=== PATIENT | female | born 1970 | race Caucasian/White ===

== ENCOUNTER → 2018-02-23 | Outpatient (CLI) | payer BC, OTHER ==
[~2018-02-23] MED LIST: IOHEXOL 350 MG/ML 100 ML (OMNIPAQUE 350) VIAL IV ONE; NS 250 ML (IVPB) BAG IV ONE
[2018-02-23 08:17] LABS: BASOPHILS % (AUTO) 1 % (0-10); EOSINOPHILS # (AUTO) 0.2 10^3/uL (0.0-0.3); EOSINOPHILS % (AUTO) 3 % (0-10); HEMATOCRIT 42 % (35-52); HEMOGLOBIN 14.3 G/DL (11.5-16.0); LYMPHOCYTES # (AUTO) 1.6 X 10^3 (1.0-4.0); LYMPHOCYTES % (AUTO) 26 % (12-44); MEAN CORPUSCULAR HEMOGLOBIN 29 PG (25-34); MEAN CORPUSCULAR HGB CONC 34 G/DL (32-36); MEAN CORPUSCULAR VOLUME 85 FL (80-99); MEAN PLATELET VOLUME 9.1 FL (7.4-10.4); MONOCYTES # (AUTO) 0.4 X 10^3 (0.0-1.0); MONOCYTES % (AUTO) 7 % (0-12); NEUTROPHILS # (AUTO) 3.8 X 10^3 (1.8-7.8); NEUTROPHILS % (AUTO) 64 % (42-75); PLATELET COUNT 250 10^3/uL (130-400); RED BLOOD COUNT 4.98 10^6/uL (4.35-5.85); RED CELL DISTRIBUTION WIDTH 12.8 % (10.0-14.5)
[2018-02-23 08:38] LABS: ALANINE AMINOTRANSFERASE 16 U/L (0-55); ALBUMIN 4.9 GM/DL (3.2-4.5); ALKALINE PHOSPHATASE 75 U/L (40-136); BILIRUBIN,TOTAL 0.6 MG/DL (0.1-1.0); BUN/CREATININE RATIO 13; CARBON DIOXIDE 26 MMOL/L (21-32); CHLORIDE 108 MMOL/L (98-107); CHOLESTEROL 194 MG/DL (< 200); CREATININE SERUM 0.82 MG/DL (0.60-1.30); GFR ESTIMATED > 60; GLUCOSE 92 MG/DL (70-105); HDL CHOLESTEROL 57 MG/DL (40-60); LIPASE 37 U/L (8-78); POTASSIUM 4.1 MMOL/L (3.6-5.0); SODIUM 143 MMOL/L (135-145); TOTAL PROTEIN 8.1 GM/DL (6.4-8.2); TRIGLYCERIDES 53 MG/DL (<150); VLDL CHOLESTEROL 11 MG/DL (5-40)
--- NOTE | 2018-02-23 09:39 | Diagnostic Imaging Report ---
PROCEDURE: CT abdomen with contrast only. TECHNIQUE: Multiple contiguous axial images were obtained through the abdomen after the administration of intravenous contrast. INDICATION: Right-sided abdominal fullness. Comparison is made with prior CT from 02/09/2011. The lung bases are clear. There is a low-density lesion in the right lobe of liver measuring 16 mm in size. This was not well seen on prior CT, however, the prior CT was only a noncontrast study. No other liver lesions are detected. Gallbladder surgically absent. No biliary duct dilatation is seen. The pancreas and spleen are unremarkable. No adrenal mass is detected. Kidneys are unremarkable. Aorta is nonaneurysmal. There is no ascites. IMPRESSION: 1. Indeterminate low-density lesion right lobe of the liver. Liver ultrasound would be useful for further characterization. 2. Otherwise unremarkable CT of the abdomen. No acute features detected. Dictated by: Dictated on workstation # [id number]
== END ==
LOC: RAD 07:51
PROVIDERS: ATTEND Registered Nurse
DX: R16.0 Hepatomegaly, not elsewhere classified (principal)
CPT/HCPCS: 36415; 74160; 80053; 80061; 82977; 83690; 85025; 86677

== ENCOUNTER 2022-08-25 05:42 | Outpatient (CLI) | payer BC, OTHER ==
[~2022-08-25] VITALS: Ht 162.6 cm; Wt 59.4 kg
[2022-08-25] MEDS ORDERED: ASCO100024 PO (12:19)
[2022-08-25] MEDS ORDERED: CALC600T91 PO (12:19)
[2022-08-25] MEDS ORDERED: MULT-593 PO (12:19)
[2022-08-25] MEDS ORDERED: CYAN250010 PO (12:19)
[2022-08-25] MEDS ORDERED: IBUP-1779 PO (12:19)
== END 2022-08-25 12:25 | disposition home or self-care (01) ==
LOC: PREOP 05:42
PROVIDERS: ATTEND Surgery
DX: Z01.818 Encounter for other preprocedural examination (principal)

== ENCOUNTER 2022-09-06 08:56 | Day surgery (SDC) | payer BC, OTHER ==
[~2022-09-06] VITALS: Ht 162.6 cm; Wt 59.4 kg
[~2022-09-06 08:56] MED LIST changes: +ASCO100024 PO; +CALC600T91 PO; +CYAN250010 PO; +IBUP-1779 PO; -IOHEXOL 350 MG/ML 100 ML (OMNIPAQUE 350) VIAL IV ONE; +MULT-593 PO; -NS 250 ML (IVPB) BAG IV ONE
[2022-09-06 09:15] VITALS: BP 129/91
[2022-09-06] MEDS ORDERED: LACTATED RINGERS 1,000 ML IV STA (09:17)
--- NOTE | 2022-09-06 09:23 | Progress Note-Pre Operative ---
Pre-Operative Progress Note Date of Available H&P: Aug 19, 2022 Date H&P Reviewed: Sep 06, 2022 Time H&P Reviewed: 09:20 History & Physical: H&P Reviewed, Patient Examed, No changes noted Pre-Operative Diagnosis: rectal bleed CLIF PISANO DO Sep 06, 2022 09:23
[2022-09-06] MEDS ORDERED: PROPOFOL INJECTION 50 ML IV ONE (10:38)
[2022-09-06 11:05] VITALS: BP 113/64
[2022-09-06 11:10] VITALS: BP 113/67
[2022-09-06 11:15] VITALS: BP 121/60
--- NOTE | 2022-09-06 11:44 | Progress Note-Post Operative ---
Post-Operative Progess Note Surgeon (s)/Basket Machine Operator (s) Surgeon CLIF PISANO DO Basket Machine Operator: RAMONE Suero Pre-Operative Diagnosis rectal bleed Post-Operative Diagnosis int hemorrhoids Procedure & Operative Findings Date of Procedure 09/06/22 Procedure Performed/Findings Colonoscopy PROCEDURE NOTE: After informed consent was obtained, the patient was brought to the endoscopy suite, placed in bed in left lateral decubitus position. She was administered IV sedation by the SECOND HAND who then monitored her vitals the entire time, heart rate, blood pressure and pulse ox and the scope was inserted, pushed all the way to about 150 cm and pushed into the cecum, took a picture of appendiceal orifice and noted the ileocecal valve. Then slowly withdrew the scope insufflating to look circumferentially at the paez starting in the cecum, up the ascending colon to the hepatic flexure, then down the transverse colon, splenic flexure, into the descending colon down in the sigmoid and then into the rectal vault and retroflexed the scope. Took picture of the internal hemorrhoids. The patient tolerated the procedure. She was recovered in endoscopy suite. Recommended for repeat colonoscopy in 10 years. Anesthesia Type IV sedation by Anesthesia Estimated Blood Loss Estimated blood loss (mL): none Specimens/Packing Specimens Removed none CLIF PISANO DO Sep 06, 2022 11:44
--- NOTE | 2022-09-06 11:45 | Endoscopy Discharge Instruct ---
Endo Procedure/Findings Findings 1.: Internal Hemorrhoids Discharge Instructions - Activity: You might feel a little sleepy until tomorrow. This is due to the me dicine you received to relax you. Until tomorrow, you should: NOT drive a car, operate machinery or power tools. NOT drink any alcoholic beverages. NOT make any important decisions or sign importortant papers. Do not return to work until tomorrow, unless otherwise instructed. Resume previous activities tomorrow. Diet: Start by taking liquids. If you tolerate liquids, advance to solid food. 1.: Colonscopy in 10 years Notify Physician - If you experience excessive bleeding, unusual abdominal pain, fever, or chest pain, contact your doctor immediately. CLIF PISANO DO Sep 06, 2022 11:45
[2022-09-06 11:50] VITALS: BP 104/79
--- NOTE | 2022-09-06 13:26 | Anesthesia-General Post-Op ---
MAC Patient Condition Mental Status/LOC: Same as Preop Cardiovascular: Satisfactory Nausea/Vomiting: Absent Respiratory: Satisfactory Pain: Controlled Complications: Absent Post Op Complications Complications None Follow Up Care/Instructions Patient Instructions None needed. Anesthesiology Discharge Order Discharge Order Patient was doing well this morning after the procedure with no complaints, stable vital signs, no apparent adverse anesthesia problems. No complications reported per nursing. DAVID SPICER DO Sep 06, 2022 13:26
== END 2022-09-06 12:00 | disposition home or self-care (01) ==
LOC: ENDO 08:56
PROVIDERS: ATTEND Surgery
DX: K64.8 Other hemorrhoids (principal); Z85.3 Personal history of malignant neoplasm of breast
CPT/HCPCS: 84703